=== PATIENT | female | born 1995 | race Hispanic/Latino ===

== ENCOUNTER 2021-01-02 19:51 | Emergency (ER) | payer OTHER ==
[~2021-01-02] VITALS: Ht 157.5 cm; Wt 49.0 kg
== END 2021-01-02 21:21 | disposition home or self-care (01) ==
LOC: FSED 20:19
DX: R07.89 Other chest pain (principal)
CPT/HCPCS: 71045; 93005; 99283

== ENCOUNTER 2021-05-03 01:22 | Emergency (ER) | payer OTHER ==
[2021-05-03] MEDS ORDERED: IBUPROFEN600 MG PO (01:50)
[2021-05-03 02:32] VITALS: BP 109/73
== END 2021-05-03 02:32 | disposition home or self-care (01) ==
LOC: FSED 01:37
DX: R09.1 Pleurisy (principal); Z88.0 Allergy status to penicillin; Z86.16 Personal history of COVID-19
CPT/HCPCS: 71045; 93005; 99283

== ENCOUNTER 2024-10-01 22:24 | Emergency (ER) | payer OTHER ==
[~2024-10-01] VITALS: Ht 147.3 cm; Wt 52.6 kg
[~2024-10-01 22:24] MED LIST: IBUPROFEN600 MG PO
[2024-10-01 22:55] VITALS: PULSE 93; RESP 18; TEMP 97.3
[2024-10-02] MEDS ORDERED: SODIUM CHLORIDE 0.9% 1000ML 1,000 ML IV SCH (00:15)
[2024-10-02] MEDS ORDERED: SODIUM CHLORIDE 0.9% 1000ML 1,000 ML ONE (01:20)
[2024-10-02] MEDS: ACETAMINOPHEN 325 MG TAB PO ONE (01:29)
[2024-10-02 04:35] VITALS: BP 96/53; PULSE 73; RESP 18; TEMP 98.5; O2SAT 99
== END 2024-10-02 04:35 | disposition home or self-care (01) ==
LOC: FSED 22:55
DX: O26.891 Other specified pregnancy related conditions, first trimester (principal); R10.30 Lower abdominal pain, unspecified
CPT/HCPCS: 36415; 76801; 76830; 80053; 81003; 81025; 84702; 85025; 86900; 99284; J7030

== ENCOUNTER 2024-12-01 16:52 | Emergency (ER) | payer OTHER ==
[~2024-12-01] VITALS: Ht 147.3 cm; Wt 51.1 kg
[2024-12-01 17:00] VITALS: PULSE 92; RESP 16; TEMP 98.2
[2024-12-01] MEDS: ONDANSETRON HCL 4 MG ORAL DISINTEGRATING TAB PO ONE (17:31)
[2024-12-01 21:04] VITALS: BP 111/58; O2SAT 98
== END 2024-12-01 20:58 | disposition home or self-care (01) ==
LOC: FSED 16:55
DX: O26.891 Other specified pregnancy related conditions, first trimester (principal); R10.2 Pelvic and perineal pain; M54.50 Low back pain, unspecified; R42 Dizziness and giddiness
CPT/HCPCS: 76801; 76817; 80053; 81003; 85025; 99284; Q0162